=== PATIENT | female | born 1990 | race Caucasian/White ===

== ENCOUNTER 2023-11-02 09:56 | Day surgery (SDC) | payer BC ==
[2023-10-31 17:53] LABS: Hematocrit 40.9 % (34.9-44.5); Hemoglobin 13.8 g/dL (12.0-15.5); Mean Corpuscular HGB CONC 33.7 g/dL (32.0-36.0); Mean Corpuscular Hemoglobin 31.1 pg (27.0-33.0); Mean Corpuscular Volume 92.1 fl (81.6-98.3); Mean Platelet Volume 10.6 fl (7.4-10.4); Platelet Count 213 10x3/uL (150-450); Red Blood Cell (RBC) Count 4.44 10x6/uL (3.90-5.03)
[2023-11-01 09:11] VITALS: BMI 21.2
[2023-11-02] MEDS ORDERED: CeleCOXIB 100 MG CAP ONE (10:18)
[2023-11-02] MEDS ORDERED: Misoprostol 200 MCG TAB ONE (11:39)
[2023-11-02] MEDS ORDERED: Tranexamic Acid 1,000 MG/10 ML VIAL ONE (11:39)
[2023-11-02] MEDS ORDERED: Methylergonovine 0.2 MG/ML VIAL ONE (11:39)
[2023-11-02] MEDS ORDERED: CEFAZOLIN 2 GM VIAL ONE (11:48)
[2023-11-02] MEDS ORDERED: fentaNYL 50 mcg/mL 1 mL Vial ONE (11:51)
[2023-11-02] MEDS ORDERED: PROPOFOL 20 ML ONE (11:51)
[2023-11-02] MEDS ORDERED: Dexamethasone 20 MG/5 ML VIAL ONE (11:52)
[2023-11-02] MEDS ORDERED: Ondansetron PF 4 MG/2 ML Vial ONE (11:52)
[2023-11-02] MEDS ORDERED: Ketorolac Tromethamine 30 MG (1 mL) VIAL ONE (11:52)
[2023-11-02] MEDS ORDERED: Lidocaine 1% PF 5 ML VIAL ONE (11:52)
[2023-11-02] MEDS ORDERED: PHENYLEPHRINE-NS 100 MCG/ML 10 ML SYRINGE ONE (12:42)
[2023-11-02] MEDS ORDERED: ePHEDrine Sulfate 50 MG/10 ML VIAL ONE (12:44)
== END 2023-11-02 14:35 | disposition home or self-care (01) ==
LOC: CSHSDC 09:56
PROVIDERS: ATTEND Obstetrics & Gynecology
PROC: 10D17ZZ Extraction of Products of Conception, Retained, Via Natural or Artificial Opening (ICD-10-PCS; principal; 2023-11-02)
DX: O02.1 Missed abortion (principal)
CPT/HCPCS: 85027; 86850; 86900; 86901; 88305; J1100; J1885; J2210; J2405; J2704; J3010